=== PATIENT | male | born 1980 | race Two or more races ===

== ENCOUNTER 2023-02-13 20:50 | Emergency (ER) | payer BC ==
[~2023-02-13] VITALS: Ht 188 cm; Wt 124.7 kg
[2023-02-13] MEDS ORDERED: HYDRODIURIL12.5 MG PO (20:59)
[2023-02-13] MEDS ORDERED: VALSARTAN160 MG PO (20:59)
[2023-02-13] MEDS ORDERED: DICLOFENAC SODI75 MG PO (22:56)
== END 2023-02-13 23:26 | disposition home or self-care (01) ==
LOC: ER 20:50
DX: S86.812A Strain of other muscle(s) and tendon(s) at lower leg level, left leg, initial encounter (principal); W05.2XXA Fall from non-moving motorized mobility scooter, initial encounter; Y93.89 Activity, other specified; Y92.89 Other specified places as the place of occurrence of the external cause; Y99.9 Unspecified external cause status